=== PATIENT | male | born 1985 | race Caucasian/White ===

== ENCOUNTER → 2017-06-08 | Outpatient (CLI) | payer MEDICARE ==
[~2017-06-08] MED LIST: BASAGLAR K100 UNIT/1 SUBQ; CYMBALTA60 MG PO; DAILY MULTIPLE1 EACH PO; DILAUDID 2 MG TA2 MG PO; DILAUDID 4 MG TA4 M1 PO; GLUCOPHAGE1000 MG PO; GLYCOLAX119 GM PO; JANUVIA 50 MG T50 MG PO; LEVEMIR; LISINOPRIL5 MG PO; METHADONE HCL 110 M1 PO; METHADONE HCL 110 MG PO; MILK OF MA400 MG/5 M PO; MOVANTIK12.5 MG PO; NEURONTIN 300300 M1 PO; NOVOLOG100 UNIT/1 SUBQ; ONDANSETRON HCL4 M3 PO; OXYCODONE HCL E10 MG PO; OXYCONTIN80 M1 PO; PERCOCET 10-321 EACH PO; SENNOSIDES-DOC1 EACH PO; TOPROL XL25 MG PO; VALIUM5 MG PO
--- NOTE | 2017-06-13 07:21 | PAINCON ---
[facility] [address] [place] [address] PAIN MANAGEMENT CONSULTATION Name: MIGUEL JONES [id number] Admission: 06/08/17 Attend Phys: Jeff Soria Discharge: Date of : 83 Report #: [id number] THIS REPORT FOR: //name// CC: Rafia Hernandez DATE OF SERVICE: 06/08/2017 The patient is a 31-year-old gentleman being treated for significant spinal stenosis, myelopathy, neuropathic pain, status post cervical, thoracic and lumbar decompressive laminectomies. Requires high risk complex medication management. Last seen in pain clinic 04/13/2017. The patient was continued on methadone high dose, 10 mg 3 tablets in the morning, 3 at noon, 2 at night. It is of note that the patient has a significant body mass index, he is 6 feet 7 inches, weighs 366 pounds. BMI is 41.5 kg per meter squared. Uses hydromorphone 4 mg b.i.d., Movantik p.r.n. for opiate-induced constipation, Cymbalta 60 mg b.i.d. The patient returns to pain clinic today noting medications are providing sufficient analgesia, participates in activities of daily living, rates the pain a 4 on a Visual Analog Scale. [employer] has enabled his current opiate prescription for another year, good 05/02/2017 through 05/01/2018. The patient continues with ongoing right leg weakness, which is concerning. Again, following his acute thoracic radiculopathy and myelopathic symptoms with his initial decompression he has had ongoing left leg weakness, has worn an AFO since about 2009. He did develop significant myelopathy again with paresis in the right arm. Had ACDF in 2014, he woke up with paralysis in the right arm, the following day had a posterior cervical decompression. He has had good improvement of the right arm weakness, but continues with right thumb and index paresthesia. But he has had some right leg weakness, which in retrospect he thinks maybe even antedated the acute myelopathic cervical generated symptoms. Concern, however, that his right leg is his typically stronger leg, his balance is getting worse. I had written for MRI of the thoracolumbar spine with and without contrast last year, but due to economic reasons he is unable to get this accomplished. Again, the patient is a very pleasant 31-year-old gentleman who has had significant issues with spinal stenosis, myelopathy, arachnoiditis and neuropathic pain. He is stable from a pain standpoint, but his functional status is dwindling somewhat with ongoing right leg weakness, chronic left leg weakness. He uses a walker exclusively. He has fallen at home since we last saw him, he got out of bed and tripped over his sweat pant leg. Again, the patient admits he had taken a few [place] [address] PAIN MANAGEMENT CONSULTATION Name: MIGUEL JONES Room: [facility]QUE Yap#: [id number] Admission: 06/08/17 Attend Phys: Jeff Soria Discharge: Date of : 83 Report #: [id number] We reviewed the fact that opiate medications are being used to provide analgesia adequate to support activities of daily living, not attempting to achieve a specific pain score on the 0-10 Visual Analog Scale. The current opiate medications are providing sufficient analgesia to allow the patient to participate in activities of daily living. The patient is not exhibiting any aberrant behavior suggestive of drug diversion. The patient is not having any adverse reactions to medications. The patient is not suffering from daytime somnolence or mental acuity changes. The patient is managing opiate-induced constipation with appropriate [id number] agents and dietary considerations. The patient was counseled on concern for caution with operating a motor vehicle while using opiate medications. A physical exam was performed and the patient's functional status was evaluated. All patients with back pain were advised against the bed rest greater than 4 days and were advised to return to normal activities. Pain score assessment was noted and the treatment plan was reviewed with the patient. All current medications, both prescribed and OTC were reviewed and reconciled on the electronic medical record. Tobacco screening was accomplished and smoking cessation was advised when indicated. BMI was noted and diet/exercise modification was recommended for all patients following outside normal parameters. I reviewed with the patient today their responsibilities to safeguard prescription medications, reviewed their responsibility to utilize medications only as prescribed by the physician. They are to seek and receive pain medications only from 1 physician group ( [facility]). They are to use 1 pharmacy and keep the clinic informed if they change pharmacies. Their responsibilities include making followup visits in a timely fashion and to avoid abrupt discontinuation of medication usage. Their responsibilities further include bringing their medications (bottles from the pharmacy with residual pills) to the visit for possible confirmation of pill counts and the patient understands it is their responsibility to submit to random drug screens to ensure both that the medications prescribed are present, and that no other controlled substances are present. All prescriptions provided today were generated electronically. ASSESSMENT: Neuropathic pain requiring high risk complex medication management. The patient with myelopathic symptoms status post cervical, thoracic and lumbar decompressive laminectomies over multiple years. Ongoing right lumbar radicular symptoms and chronic pain syndrome, stable on baseline medications. RECOMMENDATION: Renew methadone 10 mg 3 in the morning, 3 at noon, 2 at night; hydromorphone 4 mg up to b.i.d., Movantik 25 mg p.r.n. opiate-induced constipation and Cymbalta 60 mg b.i.d. Last random drug screen was apparently greater than a year [place] [address] PAIN MANAGEMENT CONSULTATION Name: MIGUEL JONES Room: [facility]#: [id number] Admission: 06/08/17 Attend Phys: Jeff Soria Discharge: Date of : 83 Report #: [id number] reveal realize this when the patient was in the clinic. We will repeat a buccal drug swab at next visit. No aberrant behavior suggestive of drug diversion, simply complying with our opiate consent to treat contract. The patient was discharged in good and stable condition today. Medication renewed for 2 months. <ELECTRONICALLY SIGNED> By: Titus Hernandez DO 06/13/17 0721 1242 1933Titus Hernandez DO /nt
== END ==
LOC: M.PC 02:53
DX: M48.061 Spinal stenosis, lumbar region without neurogenic claudication (principal); M54.16 Radiculopathy, lumbar region; G89.4 Chronic pain syndrome; Z98.890 Other specified postprocedural states; Z79.899 Other long term (current) drug therapy

== ENCOUNTER → 2017-12-01 | Outpatient (CLI) | payer MEDICARE, MEDICAID ==
--- NOTE | 2017-12-16 08:37 | PAINCON ---
[facility] [address] [place] [address] PAIN MANAGEMENT CONSULTATION Name: MIGUEL JONES Room: [facility] EN[facility] Yap#: [id number] Admission: 12/01/17 Attend Phys: Jenny Torres MD Discharge: Date of : 83 Report #: [id number] THIS REPORT FOR: //name// CC: Rafia Torres DATE OF SERVICE: 12/01/2017 FOLLOWUP HISTORY: The patient is a very complicated 32-year-old gentleman. This is my first time visiting with him. He has been followed by Dr. Titus Hernandez. As you understand, he has a significant problem with spinal stenosis, myopathy, neuropathic pain status post cervical, thoracic, lumbar decompression laminectomies. He has rods and screws in place. He fell. After evaluation, it was concluded that he had a fracture in the T5-T6 area. He has 22 pins in his back as well as rods. At the time of the evaluation, options were surgery or a conservative approach with the patient being monitored in a facility for a number of months. The patient elected to undergo the conservative approach. He was in a hospital setting. He recently was discharged. He has been home for about a week. He has improved. Still has some significant weakness as a result of his prolonged hospitalization and bed rest. While hospitalized, his medications included use of methadone. The patient has been on methadone for a long period of time. He generally takes about 8 methadone tablets a day, #3 in the morning and 3 in the afternoon and 2 at night. While hospitalized, he was on three tablets morning and 3 in the afternoon and 3 at night. He has also used hydromorphone 4 mg tablets 1 b.i.d. to help control breakthrough pain. He has used Cymbalta in the past and would like to resume its use 60 mg 1 tablet b.i.d. Because of narcotic use, he has been finding Movantik 12.5 mg tablets helpful. ALLERGIES: ACETAMINOPHEN, TYLENOL. The patient states that he has been told that his liver is somewhat fatty and he has declined use of TYLENOL as much as possible, IBUPROFEN. The patient states that he has a rare bone condition where he continues to note narrowing of the spinal cord with development of spinal stenosis. 1. Diabetes. 2. Hypertension. 3. Stroke. PAST SURGICAL HISTORY: Right elbow pinning 1998. Thoracic fusion in 2008, lumbar laminectomy in 2009, lumbar fusion in 2012, cervical laminectomy 2013. Cervical fusion in 2013. SOCIAL HISTORY: He is disabled. LABORATORY DATA: No new laboratory values [place] [address] PAIN MANAGEMENT CONSULTATION Name: MIGUEL JONES Room: [facility]#: [id number] Admission: 12/01/17 Attend Phys: Jenny Torres MD Discharge: Date of : 83 Report #: [id number] interview. PAIN CLINIC ASSESSMENT: 1. Osteoarthritic changes throughout the spinal cord. 2. Height 6 feet, weight 337 pounds, BMI is 42. 3. Vital Signs, blood pressure 151/91, heart rate 104, respiratory rate 16, temperature 98.1, pain score of 7/10. Blood thinner. The patient is not on a blood thinning medication. 4. Hypertension. The patient is being treated for hypertension. 5. Opioid therapy, greater than 6 weeks, the patient has been on opioid therapy since 2015. 6. Risk assessment tool. 7. Functional assessment tool. Recreational drug use. The patient denies use of recreational drugs. 8. Tobacco: The patient denies use of tobacco. 9. Alcohol: The patient denies use of alcoholic beverages, fall risks. The patient fell a number of months ago with the development of T5 fracture. He was in a rehab facility for a number of months. Recently discharged home. PHYSICAL EXAMINATION: GENERAL: The patient is a very pleasant 32-year-old appears of stated age. Alert and oriented x 3. Hearing is within normal limits. Sclerae nonicteric. Mucous membranes are moist. HEENT: Normocephalic, atraumatic. Extraocular eye muscles intact. There is a difference in the lid lag in the left eye versus the right at times during the interview. Hearing is within normal limits. NECK: Limited range of motion. The patient has had surgeries in the neck area. Upper extremity strength is judged to be 4/5 on the right, 5/5 of the left arm. The patient has a number of well-healed scars from the base of his neck to the bottom of the sacrum. Well-healed scar in his neck, well-healed scar in the anterior neck area. Walks with use of a rolling walker. Muscle strength to the lower extremities, judged to be 4+/5 for the lower muscle groups. The patient states his legs continue to be weak, although he continues physical therapy activities, which increases muscle strength. IMPRESSION: 1. Chronic pain treated with a complex medical regimen of methadone and Dilaudid. 2. History of lumbar radiculopathy. 3. History of thoracic pain. 4. Neuropathic pain, opiate-induced hyperesthesia. RECOMMENDATION: The patient is a very complicated 32-year-old. He has been through a lot. Status post thoracic decompression, has problems with myelopathic pain with weakness in his legs, status post cervical decompression, has been treated with complex medical management by Dr. Titus Hernandez. The [address] [place] [address] PAIN MANAGEMENT CONSULTATION Name: MIGUEL JONES Room: [facility].#: [id number] Admission: 12/01/17 Attend Phys: Jenny Torres MD Discharge: Date of : 83 Report #: [id number] patient has been treated with methadone 10 mg 3 in the morning, 3 at noon, and 2 at bedtime. Also, uses Dilaudid 4 mg b.i.d. Cymbalta helpful. He is taking Movantik 12.5 mg and recently was discharged from the hospital He fell, fractured his T5/T6 area. Options are more conservative approach. After a week, the patient has finally healed. He has recently been discharged home. He has returned to the Pain Clinic for renewal of his medications. Does ambulate with use of a motorized wheelchair and a walker. The patient would like to continue with his current medical regimen. He and Dr. Hernandez have had a long history, where different options were tried. At this juncture, this appears to be the most effective medical regimen. We discussed the use of opioid medications. We discussed the CBCs requirements. At this juncture, the patient is doing relatively well on his current medication. We will continue with his medications and make adjustments as needed. We would like to thank you for letting us participate in his care. We hope he continues to improve. <ELECTRONICALLY SIGNED> By: Jenny Torres MD 12/16/17 0837 1445 0000N. Akash Torres MD /nt
== END ==
LOC: M.PC 11:40
DX: M48.061 Spinal stenosis, lumbar region without neurogenic claudication (principal); G89.29 Other chronic pain; M79.2 Neuralgia and neuritis, unspecified; Z79.899 Other long term (current) drug therapy

== ENCOUNTER → 2017-12-29 | Outpatient (CLI) | payer MEDICARE, MEDICAID ==
--- NOTE | 2018-01-06 17:38 | PAINCON ---
[facility] [address] [place] [address] PAIN MANAGEMENT CONSULTATION Name: MIGUEL JONES [facility] Yap#: [id number] Admission: 12/29/17 Attend Phys: Jenny Torres MD Discharge: Date of : 83 Report #: [id number] THIS REPORT FOR: //name// CC: Rafia Torres DATE OF SERVICE: 12/29/2017 FOLLOWUP COMPLAINT: Things are much better. It has been about a month out of rehabilitation. FOLLOWUP HISTORY: The patient is a very complicated 32-year-old gentleman. He has been followed by Dr. Titus Hernandez. He has a significant problem with spinal stenosis, neuropathic pain, status post cervical, thoracic, lumbar decompression laminectomies. He has rods and screws from the lower portion of his back up into the upper portions of his thoracic area. He has been improving. As you recall, he was hospitalized. He was in a rehabilitation facility for some time. At this juncture, he is up and walking, feeling better. He is happy to be at home at this point. He is exercising. He has lost about 9 pounds. Overall, his continence has improved. Rates his pain as a 5/10. He has been told that there were some elevations/problems with his lab tests. He is to go to follow up with Dr. Reich this afternoon. ALLERGIES: ACETAMINOPHEN AND TYLENOL. THE PATIENT STATES THAT HE HAS BEEN TOLD HE HAS LIVER INFILTRATES WITH FATTY CONDITIONS AND IBUPROFEN MEDICATIONS: Valium 5 mg t.i.d., Dilaudid 4 mg b.i.d., insulin 27 units subq t.i.d., insulin glargine 60 units subcutaneous at bedtime, magnesium 400 mg, Glucophage 1000 mg b.i.d., methadone 10 mg 3 tablets a.m., 3 tablets at noon, and 2 tablets at bedtime, multivitamins, ondansetron 4 mg, MiraLax, sennosides/docusate and Januvia 50 mg. PAIN CLINIC ASSESSMENT: 1. Osteoarthritic changes throughout the spine. 2. Height 6 feet 7 inches, weight 364 pounds and BMI is 40.9. 3. Vital signs: Blood pressure 139/85, heart rate 105, respiratory rate 16 and temperature 97.4. 4. Pain intensity 10. 5. Fall risk. The patient has not fallen in the last month. He is walking with a rolling walker. 6. Blood thinner. The patient is not on a blood thinning medication. 7. History of hypertension. The patient is not being treated for hypertension. 8. Opioids greater than 6 weeks. The patient is on an opioid regimen, which he has been getting from the pain clinic help with his convalescence. 9. Risk assessment tool. 10. [place] [address] PAIN MANAGEMENT CONSULTATION Name: MIGUEL JONES [id number] Admission: 12/29/17 Attend Phys: Jenny Torres MD Discharge: Date of : 83 Report #: [id number] 11. Recreational drug use. The patient denies use of recreational drugs. 12. Tobacco: The patient denies use of tobacco. 13. Alcohol: The patient denies use of alcoholic beverages. PHYSICAL EXAMINATION: GENERAL: The patient is a well-developed, very pleasant 32-year-old gentleman who appears his stated age. He is alert and oriented x 3. Hearing is within normal limits. Mucous membranes are moist. HEENT: Normocephalic, atraumatic. Extraocular eye muscles intact. There is evidence of some lid lag on the left side versus the right during the interview. Hearing is within normal limits. NECK: Limited range of motion. The patient has had a series of surgeries in the neck area. Upper extremity muscles strength is judged to be 4/5 for the major muscle groups on the right and 5/5 on the left side. The patient has a number of well-healed scars on the base of his neck and to the bottom of his sacrum. Well-healed scar in the neck in the anterior portion of his neck. Walks with a rolling walker. Muscle strength in the lower extremities judged to be 4+/5 for the lower muscles groups. The patient states that his legs continue to feel weak, but he feels like he is gaining some strain with the continued use of physical therapy. IMPRESSION: 1. Chronic pain treated with complex medical management using methadone and Dilaudid. 2. History of lumbar radiculopathy. 3. History of thoracic pain. 4. Neuropathic pain, opioid induced hyperesthesia. RECOMMENDATIONS: We will continue with the patient's current medical regimen. He feels that things are going reasonably well. He was on methadone. A total of 9 pills a day. He has been on methadone 8 pills. It was felt that it was a little bit bumpy initially, but feels that things are going reasonably well. He would like to continue with his medication. He has been told by his primary that he should stop by. There are some abnormalities in his lab work, which have drawn. He is somewhat apprehensive as to what that could be. He will follow up in the future as needed. We have given him a renewal of his medications of methadone and hydromorphone. We would like to thank you for letting us participate in his care. We hope he continues to improve. <ELECTRONICALLY SIGNED> By: Jenny Torres MD 01/06/18 1738 1845 0650N. Akash Torres MD /nt
== END ==
LOC: M.PC 04:55
DX: M54.16 Radiculopathy, lumbar region (principal); M48.04 Spinal stenosis, thoracic region; G89.29 Other chronic pain; F11.99 Opioid use, unspecified with unspecified opioid-induced disorder; Z79.899 Other long term (current) drug therapy

== ENCOUNTER → 2018-02-23 | Outpatient (CLI) | payer MEDICARE, MEDICAID ==
--- NOTE | 2018-03-15 16:20 | PAINCON ---
[facility] [address] [place] [address] PAIN MANAGEMENT CONSULTATION Name: MIGUEL JONES Room: [facility] LUIS ENRIQUE Yap#: [id number] Admission: 02/23/18 Attend Phys: Jenny Torres MD Discharge: Date of : 81 Report #: [id number] THIS REPORT FOR: //name// CC: Rafia Torres DATE OF SERVICE: 02/23/2018 FOLLOWUP HISTORY. I am better. My medicines still are really helpful. I stopped taking the Cymbalta. Medication did not really agree with me. It felt like I was asleep when I was awake. I am not sure that I had much relief when I was taking it. FOLLOWUP: The patient is a very pleasant 32-year-old gentleman who has been followed in the pain clinic. As you recall, he has significant problem with spinal stenosis. He has neuropathic pain. He is status post cervical, thoracic and lumbar decompression laminectomies. Has had rods and screws placed in his spine. He has continued to improve since he has been out of the hospital. Continues to work hard at rehabilitation. He feels that he has lost 10 pounds. He still has some nerve pain with shocking sensations down in his leg and into his toes. He did take Neurontin. He is not taking the Neurontin at this juncture. He feels that the Neurontin probably would be helpful in this instance and will check with his primary in regards to reinstituting this medication. He has not had any problems with the medications. No problems with mental confusion. He is able to think clearly. Overall, he feels that the medications are helpful doing what they should. Continues to have pain in his neck, low back and in the thoracic area. Rates his pain as a 6-7/10. ALLERGIES: ACETAMINOPHEN/TYLENOL. THE PATIENT STATES THAT HE HAS HAD LIVER INFILTRATES WITH FATTY INFILTRATES, IBUPROFEN. MEDICATIONS: Valium 5 mg 1 p.o. t.i.d., Dilaudid 4 mg b.i.d., insulin 27 units subcutaneously t.i.d., insulin glargine 60 units subcutaneously at bedtime, magnesium 400 mg, Glucophage 1000 mg b.i.d., methadone 10 mg 3 tablets a.m., 3 tablets at noon, 2 tablets at bedtime, multivitamins, ondansetron 4 mg, MiraLax, Sennosides/docusate, Januvia 50 mg. PAIN CLINIC ASSESSMENT/PQRS: 1. Osteoarthritic changes throughout the spine. 2. Height 6 feet 7 inches, weight 356 pounds. 3. Vital Signs: Blood pressure is 151/82, heart rate 103, respiratory rate 16, room air saturation 94%, temperature 98.4. [place] [address] PAIN MANAGEMENT CONSULTATION Name: MIGUEL JONES [id number] Admission: 02/23/18 Attend Phys: Jenny Torres MD Discharge: Date of : 83 Report #: [id number] 4. Pain score 6-7/10. 5. Fall risk. The patient has not fallen in the last 3 months. 6. Continues to walk with walker. 7. Blood thinner. The patient is not on a blood thinning medication. 8. Hypertension. The patient is not being treated for hypertension. 9. Opiate greater than 6 weeks. The patient receives this medication from one source, the pain clinic. 10. Risk assessment tool. 11. Functional assessment tool. 12. Recreational drug use. The patient denies use of recreational drugs. 13. Tobacco: The patient denies use of tobacco. 14. Alcohol: The patient denies use of alcoholic beverages. PHYSICAL EXAMINATION: GENERAL: The patient is well-developed, well-nourished 32-year-old gentleman, who appears to be stated age. He is alert and oriented x 3. Hearing is within normal limits. Mucous membranes are moist. The patient appears in good spirits. HEENT: Normocephalic, atraumatic. Extraocular eye muscles intact. There is some evidence of lid lag on the left side versus right side. Hearing is within normal limits. NECK: Good range of motion. The patient has a series of surgeries in the neck. Upper extremity muscles judged to be 4/5 for the major muscle groups in the upper extremity. Strength is 4/5 for the major muscle groups on the right and 5/5 on the left. The patient has a well-healed scar from the base of his neck to the bottom of his sacrum. Walks with use of a rolling walker. Lower extremity muscle strength is judged to be 4+/5 for the lower muscle groups. The patient continues to have some weakness in his legs. He feels that his hematocrit, gaining strength with physical therapy. IMPRESSION: 1. Chronic pain treated with complex medical regimen with methadone and Dilaudid. 2. History of lumbar radiculopathy. 3. History of thoracic pain. 4. Neuropathic pain. 5. Opioid-induced hyperesthesia. 6. Diabetes. RECOMMENDATION: We will continue the patient's current medical regimen. He feels that things are going reasonably well. He has taken the medication as prescribed. He is able to engage in activities of daily living, which he finds for filling. Not having any problems with the medications. Not have any withdrawal symptoms. It did feel that he was somewhat sleepy with use of Cymbalta. He stopped that medications, noticed a clearing of his sensorium. Has some pain, which is shooting down into his legs. [place] [address] PAIN MANAGEMENT CONSULTATION Name: MIGUEL JONES [facility] [id number] Admission: 02/23/18 Attend Phys: Jenny Torres MD Discharge: Date of : 81 Report #: [id number] primary in regards to the recent assumption of Neurontin. We would like to thank you for letting us participate in his care. A script for his medications of hydromorphone 4 mg 1 p.o. b.i.d. has been rewritten. Methadone 3 tablets a.m., 3 tablets at noon, 2 tablets at bedtime, total of 240 tablets have been written. We would like to thank you for letting us participate in his care. We hope he continues to improve. <ELECTRONICALLY SIGNED> By: Jenny Torres MD 03/15/18 1620 1221 1424N. Akash Torres MD /PMT
== END ==
LOC: M.PC 08-03 01:04
DX: M54.16 Radiculopathy, lumbar region (principal); G89.29 Other chronic pain; M54.6 Pain in thoracic spine; G62.9 Polyneuropathy, unspecified; E11.9 Type 2 diabetes mellitus without complications; F11.988 Opioid use, unspecified with other opioid-induced disorder; R20.3 Hyperesthesia

== ENCOUNTER → 2018-05-16 | Outpatient (CLI) | payer MEDICARE, MEDICAID ==
--- NOTE | ~2018-05-16 | PAINCON ---
[facility] [address] [place] [address] PAIN MANAGEMENT CONSULTATION Name: MIGUEL JONES Room: [facility] Yap#: [id number] Admission: 05/16/18 Attend Phys: Jenny Torres MD Discharge: Date of : 81 Report #: [id number] THIS REPORT FOR: //name// CC: Dr. Rafia Torres DATE OF SERVICE: 05/16/2018 PRIMARY CARE PHYSICIAN: Dr. Rafia Benito. FOLLOWUP HISTORY AND CHIEF COMPLAINT: Here for medications to be renewed. HISTORY OF PRESENT ILLNESS: The patient is a 32-year-old gentleman who has been followed in the pain clinic. As you recall, he has significant problems with spinal stenosis. Continues to have neuropathic pain. He is status post cervical, thoracic and lumbar decompression laminectomies. He has rods and screws placed in his spine. They run the gamut from bottom of his neck down to the sacral area. He has continued to rehabilitation. He finds that his current medication, methadone has been the most effective treatment thus far. Continues to have pain in his low back as well as in his neck. He is somewhat stressed at this juncture. Recently, his mother has been diagnosed with breast cancer. Rates his pain as a 5/10 today. He feels that his medications of Dilaudid and methadone as well as diazepam 5 mg p.r.n. are beneficial. With use of his medications, he feels that things are about 50% better. Notes that pain is worse with activities such as walking, sitting, standing and improves with use of his medications of methadone, Dilaudid, and diazepam. ALLERGIES: ACETAMINOPHEN/TYLENOL. THE PATIENT STATES THAT HE HAS HAD ELEVATED LIVER ENZYMES WITH FATTY INFILTRATES. THE PATIENT DOES NOT USE IBUPROFEN. MEDICATIONS: Valium 5 mg 1 p.o. t.i.d., Dilaudid 4 mg b.i.d., insulin 27 units subq t.i.d., insulin 60 units subq at bedtime, magnesium 400 mg, Glucophage 1000 mg, methadone 10 mg 3 tablets a.m., 3 tablets at noon, 2 tablets at bedtime, multivitamins, ondansetron 4 mg, MiraLax, sennosides/docusate, Januvia 50 mg. PAIN CLINIC ASSESSMENT AND PQRS: 1. Osteoarthritis. 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 2. He has not been treated for rheumatoid arthritis. 3. Height 6 feet 7 inches, weight 356 pounds. 4. Vital Signs: Blood pressure 146/92, heart rate 94, respiratory rate 18, room air saturation 94%, temperature 97.6, and pain intensity score 5/10. 5. Fall risk. The patient has not fallen in the last few months. He does walk with a walker. 6. Blood thinner. The patient is not on a [place] [address] PAIN MANAGEMENT CONSULTATION Name: MIGUEL JONES Room: [facility] Yap#: [id number] Admission: 05/16/18 Attend Phys: Jenny Torres MD Discharge: Date of : 83 Report #: [id number] 7. Hypertension. The patient is not being treated for hypertension. 8. Risk assessment tool. Moderate risk for opioid use. 9. Functional assessment tool. 10. Recreational drug use. The patient denies use of recreational drugs. 11. Tobacco: The patient denies use of tobacco. 12. Alcohol. The patient denies use of alcoholic beverages. PHYSICAL EXAMINATION: GENERAL: The patient is a well-developed, well-nourished, male. He appears his stated age. He is alert and oriented x 3. His affect is appropriate. Speech is fluent. HEENT: Normocephalic, atraumatic. Extraocular eye muscles are intact. Sclerae nonicteric. Mucous membranes are moist. NECK: Without adenopathy or JVD. EXTREMITIES: Upper extremity muscle strength judged to be 4+/5 for the major muscle groups in the upper extremity. The patient has a well-healed scar from the base of his neck to the bottom of his sacrum. Walks with a rolling walker. Lower extremity muscle strength judged to be 4+/5 for the major muscle groups. The patient continues to note some weakness in his legs. Continues physical therapy and feels like he is gaining strength. IMPRESSION: 1. Chronic pain treated with complex medical regimen with methadone and Dilaudid. 2. History of lumbar radiculopathy. 3. History of thoracic pain. 4. History of neuropathic pain. 5. Opioid-induced hyperalgesia. 6. Diabetes. 7. Concerned is that his mother has recently been diagnosed with breast cancer. RECOMMENDATIONS: We discussed treatment options with the patient. We will continue with his current medication regimen. A script for his medications has been provided. The patient feels overall that his medications are helpful. He is able to continue with his physical therapy. Overall, he feels that his strength continues to improve. He credits this to the use of his medications to help control his pain. He states that he has taken the medication as prescribed. He keeps the medications in a guarded area. He is aware that chronic use of opioid medications can cause dependence as well as some problems with tolerance with prolonged use. He has returned today for renewal of his medications. He will call us if he has any concerns. A script for his medications of Dilaudid 4 mg 1 p.o. b.i.d., total of 60; methadone 10 mg 3 tablets a.m., 3 tablets at noon, 2 tablets at bedtime were rewritten. We would like to thank you for letting us participate in his care. We hope he continues to improve. Hopefully, that his mother is [place] [address] PAIN MANAGEMENT CONSULTATION Name: MIGUEL JONES Room: [facility] Yap#: [id number] Admission: 05/16/18 Attend Phys: Jenny Torres MD Discharge: Date of : 83 Report #: [id number] patient feels that his blood sugars are improving. It was about 9.9. Now, it is down to 7.5 because of better, eating habits. By: [id number]. Akash Torres MD /AIDE
== END ==
LOC: M.PC 11:10
DX: G89.4 Chronic pain syndrome (principal); M54.6 Pain in thoracic spine; M54.16 Radiculopathy, lumbar region; E11.9 Type 2 diabetes mellitus without complications; F11.99 Opioid use, unspecified with unspecified opioid-induced disorder

== ENCOUNTER → 2018-07-11 | Outpatient (CLI) | payer MEDICARE, MEDICAID ==
--- NOTE | ~2018-07-11 | PAINCON ---
[facility] [address] [place] [address] PAIN MANAGEMENT CONSULTATION Name: MIGUEL JONES Room: [facility] Yap#: [id number] Admission: 07/11/18 Attend Phys: Jenny Torres MD Discharge: Date of : 81 Report #: [id number] THIS REPORT FOR: //name// CC: Rafia Torres DATE OF SERVICE: 07/11/2018 CHIEF COMPLAINT: Here for medication renewal, still having neck and back pain. FOLLOWUP CISTORY: The patient is a 32-year-old gentleman who has been followed in the Pain Clinic. As you may recall, he has a history of spinal stenosis. It is ____ type of spinal stenosis. The patient has had narrowing from his upper spine down into the lower portion. He has had cervical, thoracic and lumbar decompression laminectomies. Does have hearing to the rods in place in his spine. They run the gamut from the top of his neck down to the sacral area. Continues to exercise as much as possible. Feels that the methadone medication is effective. This has been the most effective medication he has tried. At this juncture, he is taking the medication as prescribed. He rates his pain as a 5/10, the day. Still has some concerns that his mother has been diagnosed with breast cancer. Feels that the Dilaudid as a breakthrough medication continues to be helpful as well as diazepam 5 mg to help with muscle spasms. Notes that activities such as walking, standing can exacerbate his pain. Still walks with use of upright walker. ALLERGIES: ACETAMINOPHEN/TYLENOL, THE PATIENT STATES THAT HE HAS HAD ELEVATED LIVER ENZYMES WITH FATTY INFILTRATES. THE PATIENT DOES NOT USE IBUPROFEN. MEDICATIONS: Valium 5 mg 1 p.o. t.i.d., Dilaudid 4 mg b.i.d., insulin 27 units subQ t.i.d., insulin 60 units subQ at bedtime, magnesium 400 mg, Glucophage 1000 mg, methadone 10 mg 3 tablets a.m., 3 tablets noon, 2 tablets at bedtime, multivitamins, ondansetron 4 mg, MiraLax, Januvia 50 mg, docusate/sennosides. PAIN CLINIC ASSESSMENT/PQRS: 1. Osteoarthritis. 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 The patient has not been treated for rheumatoid arthritis. 2. Height 6 feet 7 inches, weight 348 pounds, BMI is not listed. 3. VITAL SIGNS: Blood pressure 120/80, heart rate 94, respiratory rate 18, room air saturation is 97%, temperature 97.9. 4. Pain intensity 5/10. 5. Fall history: The patient has not fallen in the last 3 months. 6. Blood thinner. The patient is not on a blood thinning medication. 7. Hypertension. The patient is not being treated for hypertension. 8. Risk assessment to moderate risk for opioid use. 9. Functional assessment too. 10. Recreational drug use. The patient denies [place] [address] PAIN MANAGEMENT CONSULTATION Name: MIGUEL JONES Room: [facility]#: [id number] Admission: 07/11/18 Attend Phys: Jenny Torres MD Discharge: Date of : 83 Report #: [id number] 11. Tobacco: The patient denies use of tobacco. 12. Alcohol: The patient denies use of alcoholic beverages. PHYSICAL EXAMINATION: GENERAL: The patient is a well-developed, well-nourished gentleman. Appears his stated age. He is alert and oriented x 3. His affect is appropriate. Speech is fluid, seems happy. HEENT: Normocephalic. Normal sclerae. Mucous membranes moist. NECK: Without adenopathy or JVD. Upper extremity muscle strength is judged to be 4+/5 for the major muscle groups in the upper extremity. The patient has well-healed scar at the base of his neck to the bottom of his sacrum. Walks with a rolling walker. Lower extremity muscle strength is judged to be 5+/5 for the major muscle groups in the lower extremity. Continues to express some weakness in his legs. Continues physical therapy to gain strength. IMPRESSION: 1. Chronic pain treated with complex medical regimen using methadone and Dilaudid. 2. History of lumbar radiculopathy. 3. History of thoracic pain. 4. History of neuropathic pain. 5. Opioid-induced hyperalgesia. 6. Diabetes. 7. Concern regarding his mother and her breast cancer. RECOMMENDATIONS: We discussed treatment options with the patient. We will continue with his current medications. A script for his medications has been rewritten. He will continue with methadone 10 mg 3 tablets in the morning and 2 tablets at night and 3 tablets at midday. He will continue with hydromorphone 4 mg tablets 1 p.o. b.i.d. to help with breakthrough pain. He will call us if he has any concerns. We would like to thank you for letting us participate in his care. By: [id number]. Akash Torres MD /nt
== END ==
LOC: M.PC 04:58
DX: M54.16 Radiculopathy, lumbar region (principal); E11.9 Type 2 diabetes mellitus without complications; F11.988 Opioid use, unspecified with other opioid-induced disorder; Z79.899 Other long term (current) drug therapy

== ENCOUNTER → 2018-11-30 | Outpatient (CLI) | payer MEDICARE ==
--- NOTE | ~2018-11-30 | PAINCON ---
[facility] [address] [place] [address] PAIN MANAGEMENT CONSULTATION Name: MIGUEL JONES Room: [facility] Yap#: [id number] Admission: 11/30/18 Attend Phys: Jenny Torres MD Discharge: Date of : 83 Report #: [id number] THIS REPORT FOR: //name// CC: Rafia Torres DATE OF SERVICE: 11/30/2018 PRIMARY CARE PHYSICIAN: Rafia Benito MD CHIEF COMPLAINT: Here for medication renewal. HISTORY: The patient is a 33-year-old gentleman who has been followed in the pain clinic because of chronic pain. As you recall, he has an extensive history. He has a history of spinal stenosis. He has experienced narrowing of the spinal canal. Because of this he has undergone a number of surgeries. They have been in the cervical area, thoracic area, lumbar area and the patient has a series of rods, which had been placed in the spine. He finds that his current medications of methadone and Dilaudid are reasonably effective. He has worked with his previous pain doctor for a number of years and found that this is the most efficacious treatment he has had. Still has concerns about his mother. She has breast cancer. She continues to peng with it. The patient has a motorized wheelchair. He finds it is helpful. He continues to ambulate in close quarters using an upright walker. ALLERGIES: ACETAMINOPHEN/TYLENOL -- THE PATIENT STATES THAT HE HAS HAD ELEVATED LIVER ENZYMES WITH FATTY INFILTRATES. THE PATIENT DOES NOT USE IBUPROFEN. MEDICATIONS: Valium 5 mg 1 p.o. t.i.d., Dilaudid 4 mg b.i.d., insulin 27 units subcutaneous t.i.d., insulin 60 units subcutaneous at bedtime, magnesium 400 mg, Glucophage 1000 mg, methadone 10 mg 3 tablets a.m., 3 tablets noon, and 2 tablets at bedtime, multivitamins, ondansetron 4 mg, MiraLax, Januvia 50 mg, docusate/sennosides. PAIN CLINIC ASSESSMENT/PQRS: 1. 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 He is not being treated for rheumatoid arthritis. 2. Height 6 feet 7 inches, weight 324 pounds, BMI is not listed. 3. VITAL SIGNS: Blood pressure is 141/92, heart rate to 124, respiratory rate 18, room air saturation is about 94%, temperature 98.2. 4. Pain score 4/10. 5. Fall history: The patient has not fallen in the last 3 months. 6. Blood thinner. The patient is not on a blood thinning medication. 7. Risk assessment tool, moderate risk for opioid use. 8. Functional assessment tool. 9. Recreational drug use. The patient [place] [address] PAIN MANAGEMENT CONSULTATION Name: MIGUEL JONES Room: [facility]#: [id number] Admission: 11/30/18 Attend Phys: Jenny Torres MD Discharge: Date of : 81 Report #: [id number] 10. Tobacco: The patient denies use of tobacco. 11. Alcohol: The patient denies use of alcoholic beverages. PHYSICAL EXAMINATION: GENERAL: The patient is a well-developed, well-nourished gentleman. He appears his stated age. He is alert and oriented x 3. His affect is appropriate. Speech is fluent. HEENT: Normocephalic, atraumatic. Extraocular eye muscles intact. The patient does have some slight ____ and closes one eyelid slower with some lag as opposed to the other. The patient has a well-healed scar in the anterior neck area as well as in the posterior neck area. He has a well-healed scar from the top of his neck to the bottom of his sacrum. Walks with a rolling walker. Notes still significant paresis in the lower extremity. Upper extremity muscle strength judged to be 5/5 for the upper extremity muscle on the left. Notes 4+/5 muscle strength on the right. IMPRESSION: 1. Chronic pain treated with complex medical management with methadone and Dilaudid. 2. History of lumbar radiculopathy. 3. History of thoracic pain. 4. History of neuropathic pain. 5. Opioid-induced hyperalgesia. 6. Diabetes. 7. Continued concern regarding his mother who is suffering and fighting breast cancer. RECOMMENDATIONS: We discussed treatment options with the patient. At this juncture, he feels his medications are helpful. He has been taking the medication as prescribed. Feels that things are going reasonably well. He has been working very hard to lose weight. States that for the last 2 days he decided to try to fast to continue with his weight loss. Woke up this morning had some problems with thinking clearly. Called for a family member. He was found to have a very low glucose level. He took some glucose and has noticed that his sensorium has begun to clear. He finds his medications are helpful. He has very lauding of the staff because of their working with him over the years. He feels that this has been the best that he has been for about the last 5 years. Overall, things are going reasonably well. He has taken the medication as prescribed. States that his medications allow him to keep a clear sensorium. He is able to think clearly. He is able to engage in activities of daily living as best he can without problems. Previous medications left him less clear, more foggy and did not control his pain nearly as well. He would like to continue with his medications. I think that the patient is doing a good job. He has been dealing with his situation I think for better than I think most could. We will renew his medications. A script for his medications have been rewritten. He will continue with methadone 10 mg p.o. He will take [address] [place] [address] PAIN MANAGEMENT CONSULTATION Name: MIGUEL JONES [facility] [id number] Admission: 11/30/18 Attend Phys: Jenny Torres MD Discharge: Date of : 81 Report #: [id number] tablets a.m., 3 tablets noon and 2 tablets at bedtime. He will continue with the Dilaudid medication 1 p.o. b.i.d. p.r.n. pain. We would like to thank you for letting us participate in his care. We hope he continues to improve. By: [id number]. Akash Torres MD /PMT
== END ==
LOC: M.PC 05:15
DX: Z76.0 Encounter for issue of repeat prescription (principal); M54.16 Radiculopathy, lumbar region; E11.9 Type 2 diabetes mellitus without complications; R20.8 Other disturbances of skin sensation; M54.6 Pain in thoracic spine; G89.29 Other chronic pain; Z79.4 Long term (current) use of insulin; Z79.899 Other long term (current) drug therapy; Z79.891 Long term (current) use of opiate analgesic; Z88.8 Allergy status to other drugs, medicaments and biological substances

== ENCOUNTER 2019-01-22 16:26 | Inpatient (IN) | payer MEDICARE ==
[~2019-01-22] VITALS: Ht 200.7 cm; Wt 152.0 kg
[2019-01-22 16:28] VITALS: BP 141/75
[2019-01-22 19:25] LABS: HEMATOCRIT 42.4 % (42.0-52.0); HEMOGLOBIN 14.3 gm/dL (14.0-18.0); MCH 27.2 pg (26.0-34.0); MCHC 33.7 g/dL (28.0-37.0); MCV 80.7 fL (80.0-100.0); MPV 9.5 fl. (7.2-11.1); NUCLEATED RBCS 0 /100WBC; PLATELET COUNT* 144 thou/uL (150-400); RBC 5.26 mil/uL (4.50-6.00); RDW-CV 12.7 % (10.5-14.5); WBC 8.6 thou/uL (4.0-11.0)
[2019-01-22 19:33] LABS: PROTIME 10.7 Seconds (9.20-11.50)
[2019-01-22 19:44] LABS: CALCIUM 8.3 mg/dL (8.5-10.1); CREATININE 0.6 mg/dL (0.6-1.3); POTASSIUM 4.3 mmol/L (3.5-5.1)
[2019-01-22 19:48] LABS: ALBUMIN 3.2 g/dL (3.4-5.0); TOTAL BILIRUBIN 0.2 mg/dL (<0.1-1.0); TOTAL PROTEIN 6.7 g/dL (6.4-8.2)
[2019-01-22 20:00] VITALS: BP 140/60
[2019-01-22 20:09] LABS: ABSOLUTE LYMPHOCYTES 0.9 thou/uL (0.8-5.3); ABSOLUTE MONOCYTES 0.4 thou/uL (0.0-1.2); ABSOLUTE NEUTROPHILS 7.2 thou/uL (1.6-8.1); ATYPICAL LYMPHS 3 %; PLATELET ESTIMATE ADEQUATE
[2019-01-22 20:56] VITALS: BP 137/73
[2019-01-23 04:19] LABS: CALCIUM 8.5 mg/dL (8.5-10.1); CREATININE 0.6 mg/dL (0.6-1.3); POTASSIUM 4.1 mmol/L (3.5-5.1)
[2019-01-23 04:31] LABS: ABSOLUTE EOSINOPHILS 0.1 thou/uL (0.0-0.7); ABSOLUTE LYMPHOCYTES 0.9 thou/uL (0.8-5.3); ABSOLUTE MONOCYTES 0.5 thou/uL (0.0-1.2); ABSOLUTE NEUTROPHILS 4.5 thou/uL (1.6-8.1); BASOPHILS 0.4 %; HEMATOCRIT 41.7 % (42.0-52.0); HEMOGLOBIN 13.9 gm/dL (14.0-18.0); LYMPHOCYTES 15.4 %; MCH 27.1 pg (26.0-34.0); MCHC 33.3 g/dL (28.0-37.0); MCV 81.5 fL (80.0-100.0); MPV 9.6 fl. (7.2-11.1); NUCLEATED RBCS 0 /100WBC; PLATELET COUNT* 156 thou/uL (150-400); POLYS 75.2 %; RBC 5.11 mil/uL (4.50-6.00); RDW-CV 13.3 % (10.5-14.5)
--- NOTE | 2019-01-23 06:34 | NUR ---
PATIENT SLEPT WELL DURING THIS SHIFT. PT WITH NS @ 100 IN LT HAND. PT WITH LT FOOT DROP WITH FOOT BRACE FROM HOME. PT WITH IMMOBILIZER ON RT KNEE. LOWER EXTREMITY ELEVATED. PT VOIDS YELLOW URINE PER URINAL. PT MADE NPO AT MIDNIGHT. PT IN ISOLATION FOR HX OF MRSA. NASAL SWAB SENT TO LAB. PT GIVEN FENTANYL X2 DURING THIS SHIFT. FREQUENTLY USED ITEMS AND CALL LIGHT WITHIN REACH. SIDERAILS UPX2. WILL CONTINUE TO MONITOR.
[2019-01-23 07:40] VITALS: BP 155/94
--- NOTE | 2019-01-23 14:20 | NUR ---
THIS RN INSTRUCTOR AGREES WITH THE ASSESSMENT OF SN CLARISSA FOR 01/23/19 AT 1216.
--- NOTE | 2019-01-23 15:00 | NUR ---
SPOKE WITH PT. HE WAS ALERT AND ORIENTED. STATED HIS PAIN IS NOT CONTROLLED YET. WAITING FOR HINGED KNEE BRACE TO BE ORDERED/ PUT ON BY ORTHO. HE SAID HE WAS SCARED. HE IS WORRIED HIS LEG WONT HEAL AND HE WILL NEED SURGERY. HE WAS EMOTIONAL AND CRIED SEVERAL TIMES. DISCUSSED AND HE FELT HE MIGHT NEED AN ANTI ANXIETY MED. GUILLERMO JIMENEZ INFORMED. HE LIVES AT HOME WITH HIS BROTHER AND GRANDMA HE IS NORMALLY INDEPENDENT. USES A WALKER. HE SEES IN OUR PAIN MANAGMENT OFFICE. HE SAID HE IS TO HAVE AN APPT.ON AND DOES NOT WANT TO LOSE HIS DR. NORA WILL CALL TO CANCEL FOR HIM. HE WOULD LIKE TO GO TO [facility] IF POSSIBLE POST HOSPITAL STAY. IF HE CANNOT WOULD GO TO [facility] FOR SNF. HE WOULD NOT RETURN TO [facility] OR [place]. NORA LEFT ON [employer] PHONE AND FAXED REFERRAL TO [phone]. WILL FOLLOW.
[2019-01-23 16:00] VITALS: BP 147/82
--- NOTE | 2019-01-23 17:19 | NUR ---
PT REMAINED ALERT AND ORIENTED. PT GIVEN PAIN MEDS ORDERED. DOCTOR STATED NO ANXIETY MEDS OR PAIN MEDS WILL BE ADDED OR CHANGED. PT RESTING IN BED. TOLERATING DIET. FALL RISK PRECAUTIONS IN PLACE. WEIGHT BEARING STATUS MAINTAINED. HOURLY ROUNDING COMPLETED. WILL CONTINUE TO MONITOR.
[2019-01-23 21:00] VITALS: BP 135/81
--- NOTE | 2019-01-23 21:00 | NUR ---
MRSA SWAB NEGATIVE. ISOLATION DISCONTINUED.
--- NOTE | 2019-01-24 05:00 | NUR ---
PATIENT HAS REMAINED ALERT AND ORIENTED X 4 THROUGHOUT THE SHIFT AND RESTING AT INTERVALS ON HOURLY ROUNDS. BEDREST AND NWB RLE THIS SHIFT. BRACE PRESENT RIGHT KNEE AND FOOT DROP BRACE LLE. MEDICATED FOR PAIN Q2-3 HOURS WITH GOOD RESULTS PER PATIENT. VITAL SIGNS STABLE. CONTINUE TO MONITOR.
[2019-01-24 07:25] VITALS: BP 139/75
[2019-01-24 09:56] LABS: URINE BILIRUBIN NEGATIVE (Negative); URINE BLOOD TRACE (Negative); URINE CLARITY CLEAR; URINE COLOR YELLOW; URINE GLUCOSE-RANDOM NEGATIVE (Negative); URINE KETONES NEGATIVE (Negative); URINE LEUKOCYTES-REFLEX NEGATIVE (Negative); URINE NITRITE-REFLEX NEGATIVE (Negative); URINE PROTEIN NEGATIVE (Negative); URINE SPECIFIC GRAVITY <= 1.005 (1.005-1.030); URINE UROBILINOGEN 0.2 E.U./dl (0.2-1.0)
[2019-01-24 10:12] LABS: AMP/METHAMP Negative (Negative); BARBITURATES Negative (Negative); BENZODIAZEPINES Negative (Negative); COCAINE Negative (Negative); METHADONE POSITIVE (Negative); OPIATES Negative (Negative); PCP Negative (Negative); THC Negative (Negative)
--- NOTE | 2019-01-24 16:00 | NUR ---
[facility] HERE THIS AM TO SEE PT. SHE WILL RUN HIS INSURANCE AND SEE IF THEY CAN ACCEPT HIM AT DISCHARGE.
[2019-01-24 16:57] VITALS: BP 134/78
--- NOTE | 2019-01-24 17:05 | NUR ---
PT REMAINED ALERT AND ORIENTED/ PT RESTING IN BED. HINGED KNEE BRACE ORDERED AND PLACE. PAIN MEDS GIVEN ORDERED. PT/OT ORDERED. FALL RISK PRECAUTIONS IN PLACE. HOURLY ROUNDING COMPLETED. WILL CONTINUE TO MONITOR.
[2019-01-24 21:25] VITALS: BP 133/80
--- NOTE | 2019-01-25 06:30 | NUR ---
PATIENT HAS REMAINED ALERT AND ORIENTED X 4 THROUGHOUT THE SHIFT. ADEQUATE PAIN MANAGEMENT WITH USE OF FENTANYL DECREASED. RLE WITH HINGE BRACE. NON-PITTING EDEMA RIGHT FOOT, 2+ PEDAL PULSE PRESENT. PRAFO TO LLE FOR PRE-EXISTING FOOT DROP. PASSING GAS, ADEQUATE VOIDS. VITAL SIGNS STABLE. PATIENT DOES NOT TURN IN BED BED MAKES FREQUENT SMALL POSITION CHANGES INDEPENDENTLY. PATIENT CONTINUES TO REPORT HE WAKES UP WITH A START DREAMING OF HIS FALL WHICH CAUSED THE FRACTURE TO RLE. CONTINUE TO MONITOR.
[2019-01-25 08:00] VITALS: BP 137/77
--- NOTE | 2019-01-25 12:00 | NUR ---
PT.STILL NEEDING IV PAIN MEDS. HINGED KNEE BRACE ON BUT NURSING NEEDS TO CLARIFY WHAT TYPE OF ANKLE BRACE ORTHO WANTS FOR R ANKLE. PT./OT DEFFERING PT.UNITL ANKLE BRACE ON. PT.NOW THINKING HE WANTS TO GO TO SNF WHILE HE IS NWB AND THEN [facility] WHEN HE CAN BEAR WT. HE WOULD LIKE TO GO TO [facility]. MADE REFERRAL TO [facility]. POSSIBLE DISCHARGE TOMORROW. PT.SAID HE FEELS HE HAS [place] MEDICAID. ADMITTING LOOKED HIM UP ON MEDICAID AND SHOWS IT IS INACTIVE. GAVE PT.NUMBER TO [place] [employer]ICA[employer] TO CALL AND SEE WHAT HE NEEDS TO GET IT REACTIVATED. INITIALLY [facility] SAID THEY GIVE IV PAIN MEDS THERE. SHE LEFT LATER IN DAY STATING SHE WAS MISTAKEN AND THEY DO NO. PT.STILL VERY ANXIOUS ABOUT LEG PAIN,ETC. IS AWARE.
--- NOTE | 2019-01-25 14:00 | NUR ---
NOTIFIED [facility],THAT PT.WAS TO HAVE APPT.TODAY, BUT IS CURRENTLY HOSPITALIZED.
[2019-01-25 16:00] VITALS: BP 137/74
--- NOTE | 2019-01-25 18:23 | NUR ---
PT A&Ox4. VITALS STABLE. PAIN PARTIALLY CONTROLLED WITH REGIMENT. DENIED N/V. NO BM. HAS NOT GOT UP DURING SHIFT. IMMOBILIZER ON R LEG IN PLACE. PRAFO BOOT ON L FOOT IN PLACE. SPOKE WITH ORTHO AND NEEDS A LACE UP ANKLE BRACE FOR R FOOT, WILL GET FROM CS IN THE MORNING BEFORE THERAPY. LOOKING FOR SKILLED FACILITY. IV PATENT, INFUSING. FALL PRECAUTIONS IN PLACE. CALL LIGHT WITHIN REACH. WILL CONTINUE TO MONITOR.
[2019-01-25 21:06] VITALS: BP 127/76
[2019-01-26 02:10] LABS: GLYCOHEMOGLOBIN (HGB A1C) 5.8 % (4.8-5.6)
--- NOTE | 2019-01-26 06:31 | NUR ---
PATIENT REPORTED PAIN 7/10 ON ASSESSMENTS. KEPT HIM ON Q3 FENTANYL FOR PAIN CONTROL. NEW IV IN LEFT WRIST, SAYS THE LEFT HAND BURNED. LACE UP ANKLE BRACE NEEDED FROM [facility] TODAY TO WORK WITH THERAPY. HE STAYED FLAT IN BED ALL NIGHT WAS ABLE TO USE URINAL AND TAKE MEDS LYING DOWN. NO SURGERY PLANNED. PLAN IS SNF THEN REHAB. WILL CONTINUE TO ADDRESS PAIN MANAGEMENT NEEDS.
[2019-01-26 07:50] VITALS: BP 134/83
--- NOTE | 2019-01-26 11:43 | NUR ---
CALL IN TO [facility] TO SEE IF THEY CAN ACCEPT PT.AT DISCHARGE. THEY ARE TO CALL BACK. AWAITING ANKLE BRACE TO BE DELIVERED BY [facility]. PT.TO SEE AFTER BRACE IN PLACE TO R ANKLE. PT./OT NOTES WILL NEED TO BE FAXED TO [facility] WHEN IN COMPUTER.[phone]
--- NOTE | 2019-01-26 18:41 | NUR ---
ASSUMED CARE OF PATIENT AT APPROX 0730. ALERT AND ORIENTED X4. ASSESSMENT COMPLETED AND CHARTED. VS ON ROOM AIR. PAIN MANAGED WITH ORAL AND IV MEDICATIONS. [facility] CAME OUT TO FIT PATIENT FOR LACE UP ANKLE BRACE AND PATIENT REFUSED BECAUSE IT WOULD BE TOO SHANA TO GET IT ON, MOTORCYCLE SERVICE TECHNICIAN REP WENT BACK AND GOT A STABALIZING BRACE AND PATIENT WAS AGREEABLE TO THIS. PT AND OT WORKED WITH PATIENT WHO WAS RESISTANT TO THERAPIES HE DID NOT WANT TO GET UP. NGUYỄN USED URINALS FOR VOIDING AND BEDPAN FOR A BOWEL MOVEMENT TODAY. NO OTHER COMPLAINTS THIS SHIFT. FALL PRECAUTIONS IN PLACE. CALL LIGHT WITHIN REACH. HOURLY ROUNDS COMPLETED. WILL CONTINUE.
[2019-01-26 22:00] VITALS: BP 129/78
--- NOTE | 2019-01-27 05:41 | NUR ---
PT ALERT AND ORIENTED. MEDS GIVEN ORDERED. PAIN CONTROLLED BY FENTANYL Q3H. PO DILAUDID ALSO GIVEN FOR PAIN PER PT REQUEST. LT FOOT, RT LEG BRACES IN PLACE. HOURLY ROUNDING COMPLETED. WILL CONTINUE TO MONITOR.
[2019-01-27 07:50] VITALS: BP 137/84
--- NOTE | 2019-01-27 13:29 | NUR ---
WAS ASKED BY TO CHECK ON SNF FOR PT. REFERRAL WAS FAXED TO [facility]ESTERDAY, CALL PLACED TO THEM TODAY. THERE IS NO ONE IN ADMISSIONS TO RESPOND UNTIL TUESDAY. UPDATED. PT STILL RECEIVING IV PAIN MEDS BUT PER , [facility]. WILL F/U ON TUESDAY
--- NOTE | 2019-01-27 17:50 | NUR ---
ASSUMED CARE OF PATIENT AT APPROX 0730. ALERT AND ORIENTED X4. ASSESSMENT COMPLETED AND CHARTED. VSS ON ROOM AIR. PAIN MANAGED WITH METHADONE AND IV FENTANYL. FLUIDS INFUSED ORDERED. ACCUCHECKS ACHS, INSULIN ADMINISTERED ORDERED. NO OTHER COMPLAINTS THIS SHIFT. THERAPY WORKED WITH PATIENT AND GOT HIM TO THE EDGE OF THE BED TODAY. RIGHT ANKLE AND KNEE IMMOBILIZER IN PLACE. FALL PRECAUTIONS IN PLACE. CALL LIGHT WITHIN REACH. HOURLY ROUNDS COMPLETED. WILL CONTINUE TO MONITOR.
[2019-01-27 20:45] VITALS: BP 143/91
--- NOTE | 2019-01-28 04:47 | NUR ---
PATIENT HAS REMAINED ALERT AND ORIENTED X 4 THROUGHOUT THE SHIFT AND RESTING AT INTERVALS ON HOURLY ROUNDS. ACID REFLUX AT HS WITH MEDICATION PROVIDED TO RESOLUTION. GOOD ORAL INTAKE AND OUTPUTS. RLE ELEVATED ON PILLOW WITH HINGE BRACE. NWB STATUS MAINTAINED. CONTINUES TO REQUIRE IV PAIN MEDICATION IN ADDITION TO HOME MEDS OF DILAUDID AND METHADONE. XANAX AT HS FOR ANXIETY. VITAL SIGNS STABLE. CONTINUE TO MONITOR.
[2019-01-28 07:40] VITALS: BP 131/71
[2019-01-28 15:11] VITALS: BP 137/75
--- NOTE | 2019-01-28 19:45 | NUR ---
ASSUMED CARE OF PATIENT AT APPROX 0730. ALERT AND ORIENTED X4. ASSESSMENT COMPLETED AND CHARTED. VSS ON ROOM AIR. CHIEF COMPLAINT IS PAIN, MANAGED WITH ORAL AND IV MEDICATIONS. ACCUCHECKS AC AND INSULIN GIVEN ORDERED. PATIENT IS VERY UPSET THAT HIS FENTANYL WAS CHANGED TO EVERY 6 HOURS AND HE STATES THAT HE WAS NOT TOLD THAT THIS WOULD BE CHANGING UNTIL I LET HIM KNOW THAT THE ORDER HAD CHANGED. RIGHT KNEE HINGE BRACE AND ANKLE BRACE IN PLACE, ELEVATED ON PILLOWS. PATIENT VOIDING PER URINAL. BM BY VERO, LAST ONE WAS 3 DAYS AGO. FLUIDS DC'D, LEFT REMAINING BAG RUNNING AT 30 ML/HR TO KVO. FALL PRECAUTIONS IN PLACE. CALL LIGHT WITHIN REACH. HOURLY ROUNDS COMPLETED. NURSING WILL CONTINUE TO MONITOR.
[2019-01-28 20:45] VITALS: BP 126/90
[2019-01-29 04:00] VITALS: BP 120/71
--- NOTE | 2019-01-29 06:02 | NUR ---
PT AWAKE OFF AND ON DURING NIGHT WATCHING TV, PT REQUESTED PAIN MEDICATION, PT REFUSED REPOSITIONING, ASSESSMENTS COMPLETED, HOURLY ROUNDING COMPLETED, BRACE PRESENT ON R-LEG AND ELEVATED ON PILLOW, STABILIZER ON L-ANKLE IN PLACE, OFFER MADE TO CALL PHYSICIAN FOR BETTER PAIN CONTROL-PT REFUSED, PT STATED HE'D WAIT FOR PHYSICIAN ROUNDING IN AM. WILL CONTINUE TO MONITOR.
[2019-01-29 08:00] VITALS: BP 132/56
[2019-01-29] MEDS ORDERED: XANAX1 MG PO (08:24)
[2019-01-29] MEDS ORDERED: SENNA8.6 MG PO (08:30)
[2019-01-29] MEDS ORDERED: CYMBALTA60 MG PO (08:44)
[2019-01-29] MEDS ORDERED: METHADONE HCL 110 M1 PO ×2 (08:57)
[2019-01-29] MEDS ORDERED: DILAUDID 4 MG TA4 M1 PO (08:57)
[2019-01-29] MEDS ORDERED: NARCAN4 MG NASAL (08:59)
--- NOTE | 2019-01-29 09:19 | NUR ---
PT ASKING FOR IV PAIN MEDS. INFORMED THAT IV PAIN MEDS HAVE BEEN D/CD.PT BELIGERENT WITH STAFF "THIS IS BULLSHIT! NO ONE TELLS ME SHIT AROUND HERE!" PT ASKING TO SPEAK TO PT ADVOCATE. MESSAGE LEFT
--- NOTE | 2019-01-29 11:04 | NUR ---
PT.HAS DISCHARGE ORDERS. CALLED [facility]. SHE SAID THEY WOULD REVIEW HIS INFORMATION 'IF THEY COULD FIND IT'. TOLD HER IT WAS FAXED TUESDAY AND AGAIN TUESDAY. ASKED HER TO PLEASE CALL ME IF THEY CANNOT [phone]. SHE SAID SHE WOULD. GUILLERMO ARELLANO SAID PT.NOW WANTS TO GO TO [facility]. CALLED SANJU AT [facility] [phone]. SHE ASKED FOR UPDATED INFORMATION. FAXED TO HER AT [phone]. PT.VERY UPSET THAT IV PAIN MEDS WERE DISCONTINUED. CANDY,PT.ADVOCATE HERE TO SPEAK WITH PT.
--- NOTE | 2019-01-29 12:06 | NUR ---
PT GIVEN METHADONE. PT ASKING FOR XANAX AND DILAUDID TO BE GIVEN AT THE SAME TIME. EXPLAINED THAT THIS IS NOT SAFE PRACTICE TO GIVE TWO DIFFERENT OPIATES AT THE SAME TIME OR TO GIVE BENZOS AT THE SAME TIME OPIATES DUE TO RISK OF RESPIRATORY ARREST. PT STATES "WELL I DO IT AT HOME" INSTRUCTED PT OF THE DANGERS OF OPIATE OVERDOSE INCLUDING RESPIRATORY ARREST AND . PT STATES "WELL I GUESS IT IS UP TO THE NURSES DISCRETION TO NOT FOLLOW DOCTORS ORDERS" PT STATES THAT HE WOULD LIKE TO HAVE HIS PO DILAUDID INCREASED " I USUALLY TAKE IT EVERY 6 HOURS AT HOME. I DON'T KNOW WHY I TOLD YOU GUYS TWICE A DAY". INFORMED PT THAT THIS WILL NEED TO BE VERIFIED WITH PHARMACY AND DR PAULA WILL NE NOTIIFED
--- NOTE | 2019-01-29 12:19 | NUR ---
SPOKE WITH [facility] AT . RX OF DILAUDID VERIFIED 4 MG PO BID AND NOT Q6H PT HAD STATED. DR BAILON NOTIFIED
--- NOTE | 2019-01-29 15:19 | NUR ---
SPOKE WITH [facility]. SHE SAID THEY CAN ACCEPT PT.TODAY. SHE IS WAITING FOR TO SIGN OFF ON PT. SHE WILL CALL CM BACK TO DISCUSS TRANSPORTATION TIME. DISCHARGE SUMMARY/ORDERS WERE FAXED EARLIER TO HER WITH UPDATED INFORMATION.
[2019-01-29 15:20] VITALS: BP 135/75
[2019-01-29 16:57] VITALS: BP 135/75
--- NOTE | 2019-01-29 18:12 | NUR ---
REPORT CALLED TO JONAS AT [facility]. PT LEFT VIA EMS WITH ALL BELONGINGS.
== END 2019-01-29 17:45 | DRG 563 ==
LOC: M.ERS 16:26 → M.ORTHSURG 17:57 → M.TBA-ER 17:57 → M.ORTHSURG 22:23
PROVIDERS: Family Medicine; ADMIT Internal Medicine
DX: S82.144A Nondisplaced bicondylar fracture of right tibia, initial encounter for closed fracture (principal); F11.20 Opioid dependence, uncomplicated; S82.491A Other fracture of shaft of right fibula, initial encounter for closed fracture; W18.39XA Other fall on same level, initial encounter; E66.01 Morbid (severe) obesity due to excess calories; F41.9 Anxiety disorder, unspecified; E11.40 Type 2 diabetes mellitus with diabetic neuropathy, unspecified; G89.4 Chronic pain syndrome; S93.401A Sprain of unspecified ligament of right ankle, initial encounter; S80.01XA Contusion of right knee, initial encounter; I10 Essential (primary) hypertension; Y93.89 Activity, other specified; Z79.899 Other long term (current) drug therapy; Z79.84 Long term (current) use of oral hypoglycemic drugs; Z79.4 Long term (current) use of insulin; Z88.8 Allergy status to other drugs, medicaments and biological substances; Y92.89 Other specified places as the place of occurrence of the external cause; Y99.8 Other external cause status; Z68.37 Body mass index [BMI] 37.0-37.9, adult; Z87.891 Personal history of nicotine dependence; Z98.1 Arthrodesis status

== ENCOUNTER → 2019-05-10 | Outpatient (CLI) | payer MEDICARE, MEDICAID ==
[~2019-05-10] MED LIST changes: +DILAUDID4 MG PO; +METHADOSE10 MG PO; +NARCAN4 MG NASAL; +SENNA8.6 MG PO; +XANAX1 MG PO
--- NOTE | ~2019-05-10 | PAINCON ---
[facility] [address] [place] [address] PAIN MANAGEMENT CONSULTATION Name: MIGUEL JONES Room: [facility] Fracisco#: [id number] Admission: 05/10/19 Attend Phys: Jenny Torres MD Discharge: Date of : 81 Report #: [id number] THIS REPORT FOR: //name// CC: Rafia Torres DATE OF SERVICE: 05/10/2019 CHIEF COMPLAINT: "Spinal stenosis and I fell and broke my ankle." HISTORY: The patient is a 33-year-old gentleman who has been followed in the Pain Clinic because of chronic pain. As you are aware, he has a significant history. He has undergone back surgeries. He has essentially had a surgery from his upper thoracic area down to the lower back area near the sacrum. He has a history of spinal stenosis. As a result of narrowing of his spinal canal, he has undergone surgeries. There have been a number of surgeries which have been undertaken. He has had cervical, thoracic and lumbar surgeries. He has a series of rods, which had been placed in his spine. He finds that methadone and Dilaudid have been reasonably helpful in helping with his pain. He recalls getting up to go to the bathroom. He lost his balance. He fell and fractured bones in his ankle on the right side. As a result, he has undergone surgery on his leg. He was taken to a recovery center/long-term type situation where he convalesced. He returns today for renewal of his medications. He is still having increased pain in his right leg because of the fracture and healing of the bone in that area. This is the first time he has ever fallen. He feels that his methadone medication and Dilaudid medications were helpful. He would like to renew these medications, so that he continued to remain autonomous and at home. He has some pain in the buttocks area and the coccyx area as well as in his right ankle. He is to receive home health therapy. He has undergone ultrasound therapy, which helps with the pain. He has been told that he had vitamin D deficiency. He is going to follow up with the ortho physician next week for a knee brace. He rates his pain as a 6/10 today. He notes that pain is present with walking, sitting as well as standing. ALLERGIES: ACETAMINOPHEN/TYLENOL. THE PATIENT STATES THAT HE HAS HAD ELEVATED LIVER ENZYMES WITH FATTY INFILTRATES. THE PATIENT DOES NOT USE IBUPROFEN. MEDICATIONS: Alprazolam 1 mg p.r.n. 3 times daily as needed for anxiety, Dilaudid 4 mg 1 p.o. t.i.d., insulin NovoLog 100 units as directed, methadone 10 mg 3 tablets a.m., 3 tablets midday, 2 tablets at bedtime, multivitamins, naloxone 4 mg p.r.n. respiratory depression, Senna 2 tablets at bedtime. PAIN CLINIC ASSESSMENT/PQRS: 1. 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 He has osteoarthritic problems with his right ankle since [place] [address] PAIN MANAGEMENT CONSULTATION Name: MIGUEL JONES Room: [facility]#: [id number] Admission: 05/10/19 Attend Phys: Jenny Torres MD Discharge: Date of : 83 Report #: [id number] He is not being treated for rheumatoid arthritis. 2. Height 6 feet 7 inches, weight 363 pounds, BMI is 41. 3. Vital signs: Blood pressure 124/73, heart rate 104, respiratory rate 18, room air saturation is 95%, and temperature 98.6. 4. Pain intensity 6/10. 5. Fall history: The patient fell and fractured his ankle. 6. Blood thinner. The patient is not on a blood thinning medication. 7. Risk assessment tool, moderate for opioid use. 8. Functional assessment tool. 9. Recreational drug use: The patient denies. 10. Tobacco: The patient denies use of tobacco. 11. Alcohol. The patient denies use of alcoholic beverages. PHYSICAL EXAMINATION: GENERAL: The patient is a well-developed, well-nourished gentleman. Appears his stated age. He is alert and oriented x 3. His affect is appropriate. Speech is fluent. HEENT: Normocephalic, atraumatic. Extraocular eye muscles intact. He does have a slight lag time with closure of his eyelids, one versus the other. NECK: The patient has a well-healed scar in the anterior portion of his neck. He has scars in the posterior portion of his neck. He has a well-healed scar from the top of his neck to the bottom of his sacrum. NEUROLOGICAL: He walks with a rolling walker. He does have an antalgic gait. He has pain. Dictation ends here. By: [id number]. Akash Torres MD /rupesh
== END ==
LOC: M.PC 10:00
DX: G89.29 Other chronic pain (principal); Z88.8 Allergy status to other drugs, medicaments and biological substances; Z79.899 Other long term (current) drug therapy

== ENCOUNTER → 2019-07-05 | Outpatient (CLI) | payer MEDICARE, OTHER, MEDICAID ==
--- NOTE | 2019-07-27 08:28 | PAINCON ---
[facility] [address] [place] [address] PAIN MANAGEMENT CONSULTATION Name: MIGUEL JONES Room: [facility] DiegoDavid.#: [id number] Admission: 07/05/19 Attend Phys: Jenny Torres MD Discharge: Date of : 81 Report #: [id number] THIS REPORT FOR: //name// cc: Rafia Benito MD, Jennifer S. MD ~ THIS REPORT FOR: //name// CC: Rafia Torres DATE OF SERVICE: 07/05/2019 CHIEF COMPLAINT: Right ankle pain, neck and back pain. HISTORY: The patient is a 33-year-old gentleman who has been followed in the pain clinic. He has had a somewhat tumultuous course. He has some narrowing of the spinal cord. He has had surgery from above the top of his neck to the sacral area. These surgeries were in the cervical, thoracic and lumbar areas. He has had series of rods and screws in his spine. He has found that methadone and Dilaudid have been helpful. He broke his ankle. He is having some ankle pain at this point. Overall, he feels that things are going reasonably well. He feels that his medications are quite beneficial. Continues to follow up with his primary physician. He rates his pain as a 5-6/10. He notes that walking, standing, sitting can be problematic. He has returned today for renewal of his medications. ALLERGIES: ACETAMINOPHEN, THE PATIENT STATES THAT HE HAS HAD ELEVATED LIVER ENZYMES WITH FATTY INFILTRATES. THE PATIENT DOES NOT USE IBUPROFEN. MEDICATIONS: 1. Alprazolam 1 mg p.r.n. 3 times daily as needed for anxiety. 2. Dilaudid 4 mg 1 p.o. t.i.d. 3. Insulin 100 units NovoLog as directed. 4. Methadone 10 mg tablets 30 mg a.m., 30 mg midday, 20 mg at bedtime. 5. Multivitamins. 6. Naloxone 4 mg p.r.n. respiratory depression. 7. Senna 2 tablets at bedtime. PAIN CLINIC ASSESSMENT AND PQRS: 1. The patient has some osteoarthritic changes in his spine. He has some osteoarthritic problems with his right ankle since his fall and fracture of the ankle. He is not being treated for rheumatoid arthritis. 2. Height 6 feet 7 inches, weight 359 pounds, BMI is 40. 3. Vital signs. Blood pressure 159/93, heart rate 100, respiratory rate 18, room air saturation 96%, temperature 98.6. 4. Pain intensity, 5-6/10[place] [address] PAIN MANAGEMENT CONSULTATION Name: MIGUEL JONES Room: [facility]#: [id number] Admission: 07/05/19 Attend Phys: Jenny Torres MD Discharge: Date of : 81 Report #: [id number] 5. Fall history. The patient fell within the last 3 months. He fractured his ankle. 6. Blood thinner. The patient is not on a blood thinning medication. 7. Risk assessment tool, moderate for opioid use. 8. Functional assessment tool. 9. Recreational drug use. The patient denies. 10. Tobacco. The patient denies use of tobacco. 11. Alcohol. The patient denies use of alcoholic beverages. PHYSICAL EXAMINATION: GENERAL: The patient is a well-developed, well-nourished, gentleman. He appears his stated age. He is alert and oriented x 3. His affect is appropriate. Speech is fluent. HEENT: Normocephalic, atraumatic. Extraocular eye muscles intact. Sclerae nonicteric. Mucous membranes are moist. MUSCULOSKELETAL: The patient has a slight lid lag enclosure of one eye versus the other. NECK: A well-healed scar in the anterior portion of his neck and has scars in the thoracic as well as the lumbar area. NEUROLOGIC: The patient walks with a rolling walker. Has an antalgic gait. The patient has paresis in his lower extremities. Upper extremity muscle strength judged to be 5/5 for the major muscle groups in the upper extremity and 4+/5 for the major muscle groups on the lower extremity. IMPRESSION: 1. Chronic pain and complex medical management using methadone and Dilaudid. 2. History of lumbar radiculopathy. 3. History of thoracic pain. 4. History of neurologic pain. 5. Opioid-induced hyperalgesia. 6. Diabetes. 7. Concerns regarding his mother who is fighting breast cancer. 8. Fracture of his right ankle, which is healing. RECOMMENDATIONS: We discussed treatment options with the patient. At this juncture, we will continue with his medications. He feels medications are working reasonably well. He feels that his ankle is healing albeit slowly. He takes his medications as prescribed. Has not shown any signs of addiction. Gets his medications from one source. The patient does have Narcan available at home. We have explained to him the reason for this. Should he have a problem, he has explained to other family members the reasoning for this medication. He would get a support of 0.4 mg through nasal spray. [address] [place] [address] PAIN MANAGEMENT CONSULTATION Name: UZMA JONESGONZALEZ Aguilar Room: [facility]#: [id number] Admission: 07/05/19 Attend Phys: Jenny Torres MD Discharge: Date of : 81 Report #: [id number] We would like to thank you for letting us participate in his care. We hope he continues to improve. <ELECTRONICALLY SIGNED> By: Jenny Torres MD 07/27/19 0828 [id number] Torres MD /PMT
== END ==
LOC: M.PC 04:48
DX: S82.891D Other fracture of right lower leg, subsequent encounter for closed fracture with routine healing (principal); G89.29 Other chronic pain; M25.571 Pain in right ankle and joints of right foot; M54.5 Low back pain; M54.2 Cervicalgia; E11.9 Type 2 diabetes mellitus without complications; F11.188 Opioid abuse with other opioid-induced disorder; Z79.891 Long term (current) use of opiate analgesic; X58.XXXD Exposure to other specified factors, subsequent encounter

== ENCOUNTER → 2019-09-25 | Outpatient (CLI) | payer MEDICARE, OTHER, MEDICAID ==
--- NOTE | 2019-10-01 09:22 | PAINCON ---
[facility] [address] [place] [address] PAIN MANAGEMENT CONSULTATION Name: MIGUEL JONES Room: [facility] DiegoYann#: [id number] Admission: 09/25/19 Attend Phys: Jenny Torres MD Discharge: Date of : 83 Report #: [id number] THIS REPORT FOR: //name// cc: Rafia Benito MD, Jennifer S. MD ~ THIS REPORT FOR: //name// CC: Rafia Torres DATE OF SERVICE: 09/25/2019 CHIEF COMPLAINT: Here for medication renewal. HISTORY: The patient is a 34-year-old gentleman who has been followed in the pain clinic for a number of years. As you may recall, he has a significant past. He has had spinal cord injury. He has had narrowing of the spinal cord. This resulted in a number of surgeries to expand the spinal area. He has since had surgery from the cervical, thoracic and lumbar areas. He has had stabilization of the spine with placement of screws and rods. He has fallen and fractured his ankle. He is still healing from that experience. He feels that his medications continue to be helpful. He is concerned about the COVID-19 pandemic. He has a mother who has cancer and grandmother who is susceptible as well. He has been staying at home. He feels his medications provide him at least 50% benefit from his pain condition. ALLERGIES: ACETAMINOPHEN, THE PATIENT STATES THAT HE HAS HAD ELEVATED LIVER ENZYMES WITH FATTY INFILTRATES. THE PATIENT DOES NOT USE IBUPROFEN. CURRENT MEDICATIONS: Ibandronate 150 mg monthly, aspirin 81 mg, calcium, vitamin D, Bentyl 10 mg, methadone 10 mg 3 tablets a.m., 3 tablets midday, 2 tablets at bedtime, hydromorphone 4 mg q.4 hours, alprazolam 1 mg p.o. t.i.d., Dulcolax 5 mg, Spiriva inhaler, Naprosyn 500 mg, Combivent inhaler, lisinopril 20 mg, omeprazole 2.5 mg suppository, Zyrtec 10 mg. PAIN CLINIC ASSESSMENT AND PQRS: 1. The patient has osteoarthritic changes in his right ankle since he fell and fractured it. He is not being treated for rheumatoid arthritis. 2. Height 6 feet 7 inches, weight 357 pounds, BMI is 40. 3. Vital Signs: Blood pressure 149/45, heart rate 95, respiratory rate 18, room air saturation is 97%. Temperature is 96.8. 4. Pain intensity was 5/10. 5. Fall history: The patient fell and fractured his ankle, which is healing. 6. Blood thinner. The patient is not on a blood thinning medication. 7. Hypertension. 8. Risk assessment tool, [place] [address] PAIN MANAGEMENT CONSULTATION Name: MIGUEL JONES Room: [facility]#: [id number] Admission: 09/25/19 Attend Phys: Jenny Torres MD Discharge: Date of : 81 Report #: [id number] 9. Functional assessment tool reviewed. 10. Recreational drug use. The patient denies. 11. Tobacco: The patient denies. 12. Alcohol: The patient denies use of alcoholic beverages. PHYSICAL EXAMINATION: GENERAL: The patient is a well-developed, well-nourished gentleman. He appears his stated age. He is alert and oriented x 3. His affect is appropriate. [place] is good. Speech is fluent. HEENT: Normocephalic, atraumatic. Extraocular eye muscles intact. Sclerae nonicteric. Mucous membranes are moist. MUSCULOSKELETAL: The patient has slight lid lag with one eye versus the other. NECK: Well-healed scar in the anterior portion of his neck with scars in the thoracic as well as lumbar area. NEUROLOGICALLY: The patient walks with a rolling walker. His gait is antalgic. He notes he does have some paresis in his lower extremities. Upper extremity muscle strength judged to be 5-/5 for the major muscle groups in the upper extremity. 4+/5 for the major muscle groups in the lower extremity. IMPRESSION: 1. Chronic pain with complex medical management using methadone and Dilaudid to help control the pain. 2. History of lumbar radiculopathy. 3. History of thoracic pain. 4. History of neurologic pain. 5. Opioid-induced hyperalgesia. 6. Diabetes. 7. Concerns regarding his mother who is fighting breast cancer. RECOMMENDATIONS: We discussed treatment options with the patient. At this juncture, we will continue with his medications. He feels that the medications continue to be helpful. He has taken them as prescribed. He is concerned about the COVID-19 involvement. He feels he is susceptible as well as his mother and grandmother. He is staying socially isolated. A script for his medications has been written. He will continue with his medications and call us. A script for naloxone has been provided in the past. Should he have any respiratory problems this would be available. We would like to thank you for letting us participate in his care. He is aware that opioid medications become less effective as time goes on. He is aware that people can become addicted to the medication. He has not shown any signs of addiction. <ELECTRONICALLY SIGNED> By: Jenny Torres MD 10/01/19 0922 [id number]. Akash Torres MD /[facility]
== END ==
LOC: M.PC 04:20
DX: G89.29 Other chronic pain (principal); F11.20 Opioid dependence, uncomplicated; Z86.69 Personal history of other diseases of the nervous system and sense organs; Z87.39 Personal history of other diseases of the musculoskeletal system and connective tissue; E11.9 Type 2 diabetes mellitus without complications; Z88.8 Allergy status to other drugs, medicaments and biological substances; Z79.899 Other long term (current) drug therapy

== ENCOUNTER → 2019-11-20 | Outpatient (CLI) | payer MEDICARE, OTHER, MEDICAID ==
--- NOTE | 2019-12-04 14:07 | PAINCON ---
[facility] [address] [place] [address] PAIN MANAGEMENT CONSULTATION Name: MIGUEL JONES Room: [facility].#: [id number] Admission: 11/20/19 Attend Phys: Jenny Torres MD Discharge: Date of : 81 Report #: [id number] THIS REPORT FOR: //name// cc: Rafia Benito MD, Jennifer S. MD ~ THIS REPORT FOR: //name// CC: Rafia Torres DATE OF SERVICE: 11/20/2019 CHIEF COMPLAINT: Here for medication renewal. HISTORY: The patient is a 34-year-old gentleman who has been followed in the pain clinic. As you recall, he suffers from spinal stenosis. It involves a large portion of the spine from the thoracic area down to the lumbar area. He has undergone surgery because of this. He does suffer from spinal cord injury. He has had surgery in the cervical, thoracic and lumbar areas. He continues to stay as active as possible. He has rods and screws in the greater portion of his back and lumbar area. He is concerned because of his health. He is staying vigilant regarding COVID-19. He not only has his health to worry about, but that of his mother and grandmother. There are all susceptible. He has been staying long-term at home. ALLERGIES: ACETAMINOPHEN, THE PATIENT STATES THAT HE HAS HAD ELEVATED LIVER ENZYMES WITH FATTY INFILTRATES. THE PATIENT DOES NOT USE IBUPROFEN. CURRENT MEDICATIONS: Ibandronate 150 mg monthly, aspirin 81 mg, calcium, vitamin D, Bentyl 10 mg, methadone 10 mg 3 tablets a.m., 3 tablets midday, 2 tablets at bedtime, hydromorphone 4 mg q.4 hours, alprazolam 1 mg p.o. t.i.d., Dulcolax 5 mg, Spiriva inhaler, Naprosyn 500 mg, Combivent inhaler, lisinopril 20 mg, omeprazole 2.5 mg suppository, Zyrtec 10 mg. PAIN CLINIC ASSESSMENT AND PQRS: 1. The patient has osteoarthritic changes in his right ankle. He also has osteoarthritic changes in his back with lumbar fusion with rods and screws. 2. Height 6 feet 7 inches, weight 342 pounds, BMI is 38.5. 3. Vital Signs: Blood pressure 118/77, heart rate 110, respiratory rate 18, room air saturation 93%, temperature 97.3. 4. Pain intensity, 5/10. 5. Fall history. The patient has some right leg weakness. He continues to use crutches. 6. Blood thinner. The patient is not on a blood thinning medication. 7. Hypertension. The patient is not being treated for hypertension. 8. Risk assessment tool, [place] [address] PAIN MANAGEMENT CONSULTATION Name: MIGUEL JONES [id number] Admission: 11/20/19 Attend Phys: Jenny Torres MD Discharge: Date of : 81 Report #: [id number] 9. Functional assessment tool, reviewed. 10. Recreational drug use. The patient denies. 11. Tobacco. The patient denies. 12. Alcohol. The patient denies use of alcoholic beverages. PHYSICAL EXAMINATION: GENERAL: The patient is a well-developed, well-nourished, gentleman. He appears his stated age. He is alert and oriented x 3. His affect is appropriate. Speech is fluent. HEENT: Normocephalic, atraumatic. Extraocular eye muscles intact. Sclerae nonicteric. The patient does have a slight lid lag in one eye versus the other. The patient is wearing a mask. Has a well-healed scar in the anterior portion of his neck and scars in the thoracic as well as lumbar area. NEUROLOGIC: The patient walks and ambulates with a rolling walker. His gait is antalgic. Has some paresis in his lower extremities. Upper extremity muscle strength judged to be 5-/5 for the major muscle groups in the upper extremity. The patient has 4+/5 muscle strength in the lower extremities. IMPRESSION: 1. Chronic pain with complex medical management using methadone and Dilaudid to help control the pain. 2. History of lumbar radicular pain. 3. History of thoracic pain. 4. History of neurologic pain. 5. Opioid-induced hyperalgesia. 6. Diabetes. 7. Concern over his mother and grandmother's health given the COVID-19. His mother is fighting breast cancer. RECOMMENDATIONS: We discussed treatment options with the patient. At this juncture, we will continue with his medications. He finds medications are helpful. He is staying at home. He is quite concerned about his health. He has diabetes. His mother is suffering from breast cancer. His grandmother has comorbidities as well. He would like to continue with his medications. He feels that the medications continue to enable him to be reasonably active. Notes that he still has pain with walking, sitting and standing. Medications help decrease his pain. He feels that pain overall is about 50% improved with his current medical regimen. He is continuing to use medications as prescribed. A script for naloxone spray has been provided in the past. We would like to thank you for letting us participate in his care. He will call us if he has any concerns. A script for his medications of methadone 10 [place] [address] PAIN MANAGEMENT CONSULTATION Name: MIGUEL JONES Room: [facility] Fracisco#: [id number] Admission: 11/20/19 Attend Phys: Jenny Torres MD Discharge: Date of : 81 Report #: [id number] provided. The patient will also continue with Dilaudid 4 mg tablets. He will call us if he has any concerns. <ELECTRONICALLY SIGNED> By: Jenny Torres MD 12/04/19 1407 [id number]. Akash Torres MD /[facility]
== END ==
LOC: M.PC 04:04
PROVIDERS: ATTEND Anesthesiology Pain Medicine
DX: G89.29 Other chronic pain (principal); E11.9 Type 2 diabetes mellitus without complications; R20.8 Other disturbances of skin sensation; Z88.8 Allergy status to other drugs, medicaments and biological substances; Z68.38 Body mass index [BMI] 38.0-38.9, adult; Z79.899 Other long term (current) drug therapy